=== PATIENT | female | born 1955 | race Caucasian/White ===

== ENCOUNTER → 2021-09-13 | Outpatient (CLI) | payer MEDICARE | LOC: ECHO 10:17 | DX: M34.1 CR(E)ST syndrome (principal); R01.1 Cardiac murmur, unspecified; R94.31 Abnormal electrocardiogram [ECG] [EKG]; R00.1 Bradycardia, unspecified | CPT/HCPCS: ECHO; 93005; 93306 ==

== ENCOUNTER → 2021-09-23 | Outpatient (CLI) | payer MEDICARE | LOC: HEART 5 08:50 | DX: M34.1 CR(E)ST syndrome (principal); R05.1 Acute cough; R01.1 Cardiac murmur, unspecified | CPT/HCPCS: 94010 ==